=== PATIENT | male | born 2000 | race Caucasian/White ===

== ENCOUNTER 2020-03-14 16:13 | Emergency (ER) | payer OTHER ==
[~2020-03-14] VITALS: Ht 172.7 cm; Wt 75.0 kg
[2020-03-14 16:54] LABS: ALBUMIN 3.9 g/dL (3.4-5.0); ANION GAP 5 mmol/L (5-15); CALCIUM 9.5 mg/dL (8.5-10.1); CHLORIDE 106 mmol/L (98-107)
[2020-03-14 16:56] LABS: BASOPHILS % (AUTO) 0 % (0-1); EOSINOPHILS % (AUTO) 2 % (1-7); LYMPHOCYTES % (AUTO) 20 % (22-44); MEAN CORPUSCULAR HEMOGLOBIN 30.8 pg (27.5-34.5); MEAN CORPUSCULAR HGB CONC 34.1 g/dL (33.2-36.2); MEAN PLATELET VOLUME 8.3 fL (7.4-10.4); MONOCYTES % (AUTO) 12 % (2-9); NEUTROPHILS % (AUTO) 67 % (42-75); PLATELET COUNT 327 x10^3/uL (130-400); RED BLOOD COUNT 4.61 x10^6/uL (4.38-5.82); RED CELL DISTRIBUTION WIDTH 12.5 % (9.4-14.8)
[2020-03-14 16:57] LABS: CREATININE 0.97 mg/dL (0.7-1.3)
[2020-03-14 17:04] LABS: MD NO
--- NOTE | 2020-03-14 19:06 | NUR ---
re-vitaled and apologized about wait/updated on estimated poc
[2020-03-14 19:07] VITALS: BP 109/72
--- NOTE | 2020-03-14 20:10 | NUR ---
PT BROUGHT BACK TO Z22 AT THIS TIME. RESP EVEN AND UNLABORED, AMARJIT. AWAITING ED EVAL.
--- NOTE | 2020-03-14 20:45 | NUR ---
MATY ARREGUIN AT BEDSIDE.
[2020-03-14] MEDS ORDERED: IBUPROFEN 800 MG TABLET ONE (20:49)
[2020-03-14] MEDS ORDERED: DEXAMETHASONE 4 MG TABLET ONE (20:50)
[2020-03-14] MEDS ORDERED: IBUPROFEN 800 MG TABLET PO ONE (21:00)
[2020-03-14] MEDS ORDERED: DEXAMETHASONE 4 MG TABLET PO ONE (21:00)
--- NOTE | 2020-03-14 21:13 | NUR ---
Patient given discharge instructions and they have confirmed that they understand the instructions. Patient ambulatory with steady gait.
== END 2020-03-14 21:14 | disposition home or self-care (01) ==
LOC: ED 21:05
DX: J02.9 Acute pharyngitis, unspecified (principal); R59.9 Enlarged lymph nodes, unspecified
CPT/HCPCS: 36415; 80048; 82040; 85025; 87081; 87147; 87880; 99283